=== PATIENT | female | born 1935 | race Caucasian/White ===

== ENCOUNTER 2019-02-20 18:27 | Observation (INO) | payer MEDICARE ==
[~2019-02-20] VITALS: Ht 157.5 cm; Wt 63.5 kg
[~2019-02-20 18:27] MED LIST: ASPIR 8181 MG PO; CLONIDINE HCL0.1 MG PO; FUROSEMIDE20 MG PO; LOSARTAN-HCTZ1 EAC1 PO; METOPROLOL TART50 MG PO; MILK OF MA2400 MG/10 PO; NISOLDIPINE34 MG PO; ROSUVASTATIN PO; SULAR34 MG PO
--- OUTSIDE RECORDS SUMMARY | 2019-02-20 18:31 | XMS REPORT ---
Author Author [facility] Address Unknown Phone Unavailable Care Team Providers Care Montessori Paraprofessional Name Role Phone SIMEON BLACKMON Unavailable Unavailable Payers Payer Name Policy Type Policy Number Effective Date Expiration Date Problems This patient has no known problems. Allergies, Adverse Reactions, Alerts Allergy Name Allergy Type Status Severity Reaction(s) Onset Date Inactive Date Treating Clinician Comments hydralazine DA Active U 2015-12-07 00:00:00 tramadol DA Active [place] 2015-02-25 00:00:00 meperidine DA Active [place] 2015-02-25 00:00:00 morphine DA Active SV 2013-11-15 00:00:00 Medications This patient has no known medications. Results Test Description Test Time Test Comments Text Results Atomic Results Result Comments - XR CHEST 2 V 2019-02-07 13:10:00 FAX: Maribell Barron MD [phone] [place]: B St: [facility] FAX: Arvin Davalos MD [phone] Name: NYLA ORTEGA [facility] : 1935 Age/S: 83/F [address] [address] [facility]: [id number] Loc: [place] [address] Phys: Maribell Koch MD Acct: [id number] Dis Date: Status: REG CLI PHONE #: [phone] Exam Date: 02/07/2019 1238 FAX #: [phone] Reason: [facility] EXAMS: CPT CODE: [id number] XR CHEST 2 V 97432 HISTORY: Cough. COMPARISON: December 07, 2015. AP and lateral view of the chest: No acute infiltrates, effusion or congestion. Apical pleural thickening. Cardiomegaly. IMPRESSION: No acute infiltrates, effusion or congestion. at 1310 Reported and signed by: Shon Jaimes M.D. CC: Maribell Koch MD; Arvin Donaldson Technologist: FRANCISCO J Grimes) Trnscrd Date/Time/By: 02/07/2019 (3360) : By: [email or web address] Orig Print D/T: S: 02/07/2019 (0171) PAGE [address] CHEST WO [place] [address] Patient Name: NYLA ORTEGA MR #: [id number] : 1935 Age/Sex: 81/F Req #: [id number] Adm Physician: Ordered by: SIMEON BLACKMON MD Report #: [id number] Location: CT Room/Bed: Procedure: [id number] CT/CT CHEST WO Exam Date: 05/13/17 Exam Time: 1105 REPORT STATUS: Signed PROCEDURE: CT CHEST WITHOUT CONTRAST CT scan of the chest WITHOUT intravenous contrast, using standard protocol. TECHNIQUE: The chest was scanned utilizing a multidetector helical scanner from the apex to the level of the adrenal glands. No IV contrast was administered per physician's request. Coronal and sagittal multiplanar reformations were obtained. COMPARISON: None. INDICATIONS: COUGH SINCE JUNE, left pleural basilar infiltrate FINDINGS: Lines/tubes: None. Lungs and Airways: Mild biapical pleuroparenchymal scarring. Linear opacities in the medial and posteromedial left lower lobe (series 3, image 76) with associated mild bronchiolectasis, and lateral lingula (series 3, image 73 and sagittal image 92), likely represent scarring. No pulmonary nodules, masses, or conso lidation. Airways are clear, without endobronchial lesions. Small fat- containing right posterior diaphragmatic hernia (sagittal image 47). Pleura: No effusion, or pneumothorax. Heart and mediastinum: Thyroid is unremarkable. Mild cardiomegaly. No pericardial effusion. Atherosclerotic calcification of the coronary arteries and thoracic aorta. The aorta is non- aneurysmal. Main pulmonary artery is in the upper limit of normal, measuring 2.9 cm. Lymph nodes: No mediastinal, hilar, or axillary adenopathy. Abdomen: Limited views of the upper abdomen show no abnormality within the visualized liver, spleen. The adrenal glands are unremarkable. Bones: No acute bony abnormalities. Generalized osteopenia. No lytic lesions. Soft tissues are grossly unremarkable. IMPRESSION: 1. left lower lobe scarring with associated mild bronchiolectasis. Lingular scarring. No consolidation, effusion, masses or nodules. 2. Mild cardiomegaly. Antonina Nunez M.D. Dictated by: Antonina Nunez M.D. on 05/13/2017 at 17:59 Electronically approved by: Antonina Nunez M.D. on 05/13/2017 at 17:59 Dictated By: ANTONINA NUNEZ MD 58 Transcribed By: MATIAS on 05/13/171758 COPY TO: SIMEON BLACKMON MD
[2019-02-20] MEDS ORDERED: ONDANSETRON HCL INJ 2MG/ML 2ML 2 MG/ML VIAL IV NR (19:18)
[2019-02-20] MEDS ORDERED: SODIUM CHLORIDE 0.9% 1000ML 1,000 ML IV STA (19:18)
[2019-02-20 20:45] LABS: BASOPHILS % 0.4 % (0.0-1.0); EOSINOPHILS % 0.1 % (0.0-6.0); HEMATOCRIT 34.3 % (34.2-44.1); HEMOGLOBIN 11.7 g/dL (12.0-16.0); LYMPHOCYTES # (AUTO) 0.4 (1.0-3.2); LYMPHOCYTES % 4.1 % (18.0-39.1); MEAN CORPUSCULAR HEMOGLOBIN 29.9 pg (28-32); MEAN CORPUSCULAR HGB CONC 34.1 g/dL (31-35); MEAN CORPUSCULAR VOLUME 87.7 fL (81-99); MONOCYTES # (AUTO) 0.4 (0.2-0.8); MONOCYTES % 4.1 % (4.4-11.3); NEUTROPHILS # (AUTO) 9.6 (2.1-6.9); NEUTROPHILS % 90.7 % (38.7-80.0); PLATELET COUNT 292 x10e3/uL (140-360); RED BLOOD COUNT 3.91 x10e6/uL (3.6-5.1); RED CELL DISTRIBUTION WIDTH 13.3 % (11.7-14.4)
--- NOTE | 2019-02-20 20:45 | NUR ---
pt states she is having chest heaviness after zofran and franchesca, and night custodian notified, 12 lead ekg done, desk monitor, nibp, spo2. lab notified of cardiac markers
[2019-02-20 20:58] LABS: ALBUMIN 3.4 g/dL (3.5-5.0); ALBUMIN/GLOBULIN RATIO 0.8 (0.8-2.0); ANION GAP 19.1 mmol/L (8-16); CALCIUM 10.2 mg/dL (8.4-10.2); CREATININE, SERUM 0.9 mg/dL (0.57-1.11); POTASSIUM 3.1 mmol/L (3.5-5.1)
[2019-02-20 21:12] LABS: COLOR,URINE YELLOW (YELLOW)
[2019-02-20 21:13] LABS: CLARITY,URINE CLEAR (CLEAR); LEUKOCYTE ESTERASE ,URINE NEGATIVE (NEGATIVE)
[2019-02-20 21:14] LABS: NITRITE,URINE POSITIVE (NEGATIVE)
[2019-02-20 21:15] LABS: KETONES,URINE NEGATIVE (NEGATIVE); PROTEIN,URINE DIPSTICK 1+ (NEGATIVE)
[2019-02-20 21:16] LABS: BACTERIA,URINE FEW /HPF; BILIRUBIN,URINE 1+ (NEGATIVE); EPITHELIAL CELLS,URINE FEW /LPF; RBC,URINE 0-5 /HPF (0-5); URINE UROBILINOGEN 0.2 mg/dL (0.2 - 1); WBC,URINE (MAN) 0-5 /HPF (0-5)
[2019-02-20 21:25] LABS: INR 1.01; PROTHROMBIN TIME 13.8 seconds (11.9-14.5)
[2019-02-20 21:26] LABS: PARTIAL THROMBOPLASTIN TIME 26.2 seconds (23.8-35.5)
[2019-02-20] MEDS ORDERED: PROMETHAZINE HCL (IM) 25 MG/ML VIAL IM ONE (21:30)
--- NOTE | 2019-02-20 21:55 | NUR ---
PT CONT TO COMPLAIN OF VOMITING AND CHEST HEAVINESS, LOWER BACK PAIN. ERP AWARE, MEDICATED WITH PHENERGAN PER ORDERS
--- NOTE | 2019-02-20 22:00 | NUR ---
Note wilder in ED - 02/20/19 at 2314 by ALANA PT CONT TO COMPLAIN OF VOMITING AND CHEST HEAVINESS, LOWER BACK PAIN. ERP AWARE, NO NEW ORDERS
--- NOTE | 2019-02-20 22:03 | Diagnostic Imaging Report ---
Examination: Single AP view of the chest. COMPARISON: None. INDICATION: Chest pressure, history of asthma IMPRESSION: 1. Lines and Tubes: None 2. Lungs are well-inflated. Mild left basilar atelectatic changes. No consolidation or effusion 3. Cardiomediastinal silhouette is normal. Mild central pulmonary venous congestion and perihilar prominent interstitial markings, which may reflect mild interstitial edema. 4. No acute bony abnormalities. Signed by: Dr. Олег Nunez M.D. on 02/20/2019 10:00 PM
[2019-02-20 22:26] LABS: AMYLASE 111 U/L (25-125); LIPASE 50 U/L (8-78)
[2019-02-20 22:33] LABS: CREATINE KINASE MB 0.9 ng/mL (0-5.0)
[2019-02-20] MEDS ORDERED: IOPAMIDOL 370 MG/ML 200 ML INFUS..BTL INJ ONE (22:47)
[2019-02-20] MEDS ORDERED: SODIUM CHLORIDE 0.9% 50ML 50 ML ONE (22:47)
--- NOTE | 2019-02-20 23:10 | NUR ---
PT CONT TO COMPLAIN OF VOMITING/RETCHING, CHEST PAIN, BACK PAIN. DR MERA AWARE, NO NEW ORDERS, AWAITING CT RESULTS
--- NOTE | 2019-02-20 23:38 | Diagnostic Imaging Report ---
EXAMINATION: CT of the abdomen and pelvis with contrast. TECHNIQUE: Spiral CT images of the abdomen and pelvis were performed from the lung bases to the lesser trochanters after the intravenous administration of 100 cc of Isovue 370 and the oral administration of water. Coronal and sagittal reformatted images were obtained. COMPARISON: None. CLINICAL HISTORY:Lower abdominal and back pain, vomiting for one day DISCUSSION: ABDOMEN/PELVIS: LOWER THORAX:Linear opacities in bilateral lower lobes, left greater than right, likely representing subsegmental atelectasis or scarring. Mild bilateral dependent atelectasis. HEPATOBILIARY: No focal hepatic lesions. No intra or extrahepatic biliary ductal dilation. GALLBLADDER: No radio-opaque stones or sludge. No wall thickening. SPLEEN: No splenomegaly. PANCREAS: No focal masses or ductal dilatation. ADRENALS: No adrenal nodules. KIDNEYS/URETERS: No hydronephrosis, stones, or solid mass lesions. PELVIC ORGANS/BLADDER: Bladder is unremarkable. Uterus is not visualized. No adnexal masses. PERITONEUM/RETROPERITONEUM: No free air or fluid. LYMPH NODES: No intra-abdominal, retroperitoneal, pelvic or inguinal lymphadenopathy. VESSELS: The celiac trunk,superior and inferior mesenteric and bilateral renal arteries are patent The portal, superior mesenteric and splenic veins are patent. Atherosclerotic calcification of the abdominal aorta. GI TRACT: No bowel dilation or evidence of obstruction. No pericolonic inflammatory changes. Appendix is identified and normal in caliber . Small hiatal hernia. Descending and sigmoid colon diverticulosis, without diverticulitis. BONES AND SOFT TISSUE: No aggressive lytic lesion. Degenerative disc changes, worse at L4-L5. Generalized osteopenia. Postsurgical/degenerative changes of the right hip, with heterotopic ossification. There is posterior displacement of the proximal right femur in relation to the acetabulum. Small fat-containing umbilical hernia. IMPRESSION: 1. No acute abdominopelvic abnormalities. No bowel dilation or evidence of obstruction. 2. Subsegmental atelectasis versus scarring in bilateral lower lobes. Signed by: Dr. Олег Nunez M.D. on 02/20/2019 11:35 PM
[2019-02-20] MEDS ORDERED: SIMVASTATIN40 MG PO (23:57)
[2019-02-20] MEDS ORDERED: PANTOPRAZOLE SO40 MG PO (23:57)
[2019-02-20] MEDS ORDERED: ARNUITY INH (23:57)
[2019-02-20] MEDS ORDERED: SUCRALFATE1 GM PO (23:57)
[2019-02-21] VITALS (9 sets, daily range): BP systolic 145–172; BP diastolic 63–94
[2019-02-21] MEDS ORDERED: ASPIRIN 81 MG CHEW TAB PO ONE (00:15)
[2019-02-21] MEDS ORDERED: KCL 20MEQ/.9 SOD CHL 1,000 ML IV ONE (00:15)
[2019-02-21] MEDS ORDERED: FAMOTIDINE 20 MG/2 ML VIAL IV SCH (00:15)
[2019-02-21] MEDS ORDERED: PROMETHAZINE HCL (IM) 25 MG/ML VIAL IV PRN (00:15)
[2019-02-21] MEDS: CEFTRIAXONE SOD 1 GM/NS 50 ML 50 ML IV SCH (00:39)
[2019-02-21] MEDS: HYDROMORPHONE 1MG/1ML INJ IV PRN ×2 (00:39→14:40)
--- NOTE | 2019-02-21 01:15 | NUR ---
pt states he has no pain and no nausea after dilaudid. awake alert skin w/d resp nonlab, nad noted.
[2019-02-21 07:53] LABS: ANION GAP 11.9 mmol/L (8-16); BLOOD UREA NITROGEN 26 mg/dL (7-26); BUN/CREATININE RATIO 34 (6-25); CALCIUM 9.2 mg/dL (8.4-10.2); CARBON DIOXIDE 27 mmol/L (22-29); CHLORIDE 104 mmol/L (98-107); CREATININE, SERUM 0.77 mg/dL (0.57-1.11); EST GLOMERULAR FILTRATION RATE > 60 ML/MIN (60-); GLUCOSE 103 mg/dL (74-118); SODIUM 140 mmol/L (136-145)
[2019-02-21 08:15] LABS: POTASSIUM 2.9 mmol/L (3.5-5.1)
[2019-02-21 08:17] LABS: CREATINE KINASE MB 1.2 ng/mL (0-5.0)
[2019-02-21] MEDS: FAMOTIDINE 20 MG/2 ML VIAL IV SCH ×2 (09:28→21:45)
[2019-02-21] MEDS ORDERED: POTASSIUM CHLORIDE 20MEQ/100ML 200 ML IV ONE (09:45)
[2019-02-21] MEDS ORDERED: SODIUM CHLORIDE 0.9% 500ML 500 ML ONE (13:21)
--- NOTE | 2019-02-21 14:38 | History and Physical ---
CHIEF COMPLAINT: An 83-year-old female comes in with intractable nausea and vomiting. HISTORY OF PRESENT ILLNESS: Ms. Carley Dai, who has a history of chronic hip and knee osteoarthritis on a wheelchair was in usual state of health until the patient started to have back pain, who called the answering service, the patient was started on ciprofloxacin and after this, the patient started to have intractable nausea and vomiting. The patient came to the emergency room, was found to have hypokalemia, dehydration and intractable nausea and vomiting, admitted for the same. PAST MEDICAL HISTORY: History of coronary artery disease, history of hypertension, history of hyperlipidemia, history of reflux esophagitis, and history of chronic asthma. MEDICATIONS: Medicines she takes at home are clonidine 0.1 mg b.i.d., losartan hydrochlorothiazide 100/12.5, metoprolol 50 mg twice a day, 35 mg daily, pantoprazole 40 mg daily, simvastatin 40 mg daily, and Carafate 1 g daily. The patient also takes COPD/asthma, one dose inhalation daily. PAST SURGICAL HISTORY: History of cardiac stent placement, right hip replacement and partial hysterectomy. FAMILY HISTORY: Noncontributory. REVIEW OF SYSTEMS: Negative for chest pain. No shortness of breath. Positive for nausea and vomiting. No diarrhea. No constipation. No rectal bleeding. No hematochezia. No hematemesis. Positive for headache. No diplopia. No blurry vision. ALLERGIES: THE PATIENT IS ALLERGIC TO HYDRALAZINE, DEMEROL, MORPHINE, AND TRAMADOL. PHYSICAL EXAMINATION: VITAL SIGNS: Temperature is 97.7, pulse of 64, blood pressure is 145/70, pulse oximetry of 93%. HEENT: Normocephalic, atraumatic. Sunken eye. Mucosa is dry. CVS: S1, S2 normal. Regular rate and rhythm. ABDOMEN: Tender in the epigastrium. EXTREMITIES: No clubbing. No cyanosis. No edema. LUNGS: Clear to auscultation bilaterally. LABORATORY VALUES: Initial white count is 10.61, hemoglobin of 11.7, neutrophil count 19.7. Chemistry; sodium of 138, potassium of 3.1, BUN of 41, creatinine of 0.90, glucose is 147. Coags were normal. ASSESSMENT: An 83-year-old female with: 1. Dehydration. 2. Urinary tract infection. 3. History of coronary artery disease. 4. History of hypertension. 5. History of hyperlipidemia. PLAN: Continue on IV hydration. The patient has been started on Rocephin 1 g for urinary tract infection. The patient has been given 0.5 mg of hydromorphone as needed for pain control. Nausea medication is instituted and potassium chloride has been infused at this point of time IV for hypokalemia. Further recommendation per clinical course. We will continue to monitor the patient. Labs will be done in the morning and the patient can be discharged in 1 to 2 days depending on clinical progress. MD CORIE Sheriff/RACHEAL /[id number]
--- NOTE | 2019-02-21 19:00 | NUR ---
Bedside report completed with morning nurse. Pt alert and orient to name. Lying in bed HOB 60 degrees. Denies pain at this time. Denies nausea at this time. x1 vomit previous shift. Call sánchez within reach. Will continue to monitor.
--- NOTE | 2019-02-21 19:46 | NUR ---
Spoke with Dr. Donaldson at this time. Orders received to continue home medications.
[2019-02-21] MEDS: LOSARTAN POTASSIUM 100 MG TAB PO SCH (20:12)
[2019-02-21] MEDS: HYDROCHLOROTHIAZIDE 25 MG TAB PO SCH (20:13)
[2019-02-21] MEDS ORDERED: PROMETHAZINE 12.5MG/ NACL 0.9% 50 ML IV PRN (20:15)
[2019-02-21] MEDS ORDERED: SIMVASTATIN 40 MG TAB PO SCH (21:00)
[2019-02-21] MEDS ORDERED: NISOLDIPINE 34 MG PO SCH (21:00)
[2019-02-21] MEDS: METOPROLOL TARTRATE 50 MG TAB PO SCH (21:45)
[2019-02-21] MEDS: CLONIDINE HCL 0.1 MG TAB PO SCH (21:45)
[2019-02-22 00:09] VITALS: BP 112/52
[2019-02-22] MEDS: CEFTRIAXONE SOD 1 GM/NS 50 ML 50 ML IV SCH (00:15)
[2019-02-22 04:00] VITALS: BP 147/81
[2019-02-22 05:00] LABS: BASOPHILS % 0.6 % (0.0-1.0); EOSINOPHILS # (AUTO) 0.2 (0.0-0.4); EOSINOPHILS % 3.2 % (0.0-6.0); HEMATOCRIT 30.4 % (34.2-44.1); HEMOGLOBIN 9.8 g/dL (12.0-16.0); LYMPHOCYTES # (AUTO) 0.9 (1.0-3.2); MEAN CORPUSCULAR HEMOGLOBIN 29.4 pg (28-32); MEAN CORPUSCULAR HGB CONC 32.2 g/dL (31-35); MEAN CORPUSCULAR VOLUME 91.3 fL (81-99); MONOCYTES # (AUTO) 0.7 (0.2-0.8); NEUTROPHILS # (AUTO) 4.7 (2.1-6.9); NEUTROPHILS % 71.7 % (38.7-80.0); PLATELET COUNT 241 x10e3/uL (140-360); RED BLOOD COUNT 3.33 x10e6/uL (3.6-5.1); RED CELL DISTRIBUTION WIDTH 13.7 % (11.7-14.4)
[2019-02-22 05:21] LABS: ALANINE AMINOTRANSFERASE 10 IU/L (0-55); ALBUMIN 2.6 g/dL (3.5-5.0); ALBUMIN/GLOBULIN RATIO 0.7 (0.8-2.0); ALKALINE PHOSPHATASE 53 IU/L (40-150); ANION GAP 10.3 mmol/L (8-16); BLOOD UREA NITROGEN 20 mg/dL (7-26); BUN/CREATININE RATIO 24 (6-25); CALCIUM 8.9 mg/dL (8.4-10.2); CARBON DIOXIDE 28 mmol/L (22-29); CHLORIDE 104 mmol/L (98-107); CHOL/HDL RATIO 2.8 (3.0-3.6); CHOLESTEROL 151 MD/DL (0-199); CREATININE, SERUM 0.82 mg/dL (0.57-1.11); EST GLOMERULAR FILTRATION RATE > 60 ML/MIN (60-); GLUCOSE 89 mg/dL (74-118); HDL CHOLESTEROL 53 MG/DL (40-60); LDL CHOLESTEROL 84 MG/DL (60-130); POTASSIUM 3.3 mmol/L (3.5-5.1); SODIUM 139 mmol/L (136-145); TRIGLYCERIDES 68 MG/DL (0-149)
--- NOTE | 2019-02-22 06:55 | NUR ---
Report given to morning nurse. Pt lying in bed. No acute distress noted.
[2019-02-22 07:16] VITALS: BP 145/68
--- NOTE | 2019-02-22 07:38 | Progress Note ---
DATE: SUBJECTIVE: The patient is an 83-year-old female, who comes in with intractable nausea, vomiting. The patient had one episode of emesis yesterday, but feeling much better today. No chest pain, no shortness of breath, and feeling much better. No CVA tenderness and/or pain and/or back pain. OBJECTIVE: VITAL SIGNS: Temperature is 98.1, pulse of 70, blood pressure is 147/81, respirations of 18, pulse oximetry of 95%. HEENT: Normocephalic, atraumatic. Pupils are reactive to light and accommodation. CVS: S1 and S2 normal. Regular rate and rhythm. Ejection systolic murmur present. ABDOMEN: Nontender, nondistended. EXTREMITIES: Hip with tenderness, and the patient is wheelchair dependent status post hip surgery. LABORATORY VALUES: Today's hemoglobin is 9.8, hematocrit 30.4, no left shift present. Chemistries, sodium of 139, potassium 3.3. BUN of 20, creatinine 0.82. LDL is 84. Coags are normal. MICROBIOLOGY: Urine culture preliminary shows no growth. ASSESSMENT: 1. An 83-year-old female with a history of urinary tract infection, currently on antibiotic. The patient is on Rocephin. We will switch her to Keflex on discharge. 2. Dehydration, resolved. 3. Coronary artery disease with hypertension and hyperlipidemia. Continue on CV medication. We will replace potassium and discharge the patient today to be seen by me in about a week's time. Further recommendation as an outpatient. We will follow the patient along with labs. MD CORIE Sheriff/SIXTOL /[id number]
[2019-02-22 07:56] VITALS: BP 145/68
[2019-02-22] MEDS: FAMOTIDINE 20 MG/2 ML VIAL IV SCH (08:56)
[2019-02-22] MEDS: HYDROCHLOROTHIAZIDE 25 MG TAB PO SCH (08:57)
[2019-02-22] MEDS: CLONIDINE HCL 0.1 MG TAB PO SCH (08:57)
[2019-02-22] MEDS: LOSARTAN POTASSIUM 100 MG TAB PO SCH (08:57)
[2019-02-22] MEDS: METOPROLOL TARTRATE 50 MG TAB PO SCH (08:58)
[2019-02-22] MEDS ORDERED: ARNUITY INH SCH (09:00)
[2019-02-22] MEDS ORDERED: NON-FORMULARY MEDICATION (Losartan/Hydrochlorothiazide (Losartan-Hctz 100-25 Mg Tab) 1 TAB PO SCH (09:00)
[2019-02-22] MEDS ORDERED: METOPROLOL TARTRATE 50 MG TAB PO SCH (09:00)
[2019-02-22] MEDS ORDERED: PANTOPRAZOLE SOD 40 MG TABEC PO SCH (09:00)
[2019-02-22] MEDS ORDERED: CLONIDINE HCL 0.1 MG TAB PO SCH (09:00)
[2019-02-22] MEDS ORDERED: CEPHALEXIN500 MG PO (10:25)
[2019-02-22] MEDS ORDERED: ZOFRAN4 MG PO (10:25)
[2019-02-22 11:07] VITALS: BP 135/64
== END 2019-02-22 10:58 | disposition home or self-care (01) ==
LOC: ER 18:36 → ERHOLD 02-21 00:17 → MED/SURG2 02-21 01:14
PROVIDERS: ADMIT Family Medicine; ATTEND Family Medicine
DX: N30.00 Acute cystitis without hematuria (principal); E86.0 Dehydration; I25.10 Atherosclerotic heart disease of native coronary artery without angina pectoris; E78.5 Hyperlipidemia, unspecified; E87.6 Hypokalemia; R07.9 Chest pain, unspecified; R11.2 Nausea with vomiting, unspecified; I10 Essential (primary) hypertension; J45.909 Unspecified asthma, uncomplicated; Z88.5 Allergy status to narcotic agent; Z88.8 Allergy status to other drugs, medicaments and biological substances; Z83.3 Family history of diabetes mellitus; Z82.49 Family history of ischemic heart disease and other diseases of the circulatory system; Z96.641 Presence of right artificial hip joint; Z95.5 Presence of coronary angioplasty implant and graft
CPT/HCPCS: 36415 ×3; 71045; 74177; 80048; 80053 ×2; 80061; 81001; 82150; 82550 ×2; 82553 ×2; 83690; 84484 ×2; 85025 ×2; 85610; 85730; 87086; 93005; 96374; 97161; 97530; 99284; G0378 ×2; J0696 ×2; J1170; J2405; J2550; J3480; J7030; J7040; Q9967; S0164

== ENCOUNTER 2019-02-27 05:03 | Inpatient (IN) | payer MEDICARE ==
[~2019-02-27] VITALS: Ht 157.5 cm; Wt 54.9 kg
[~2019-02-27 05:03] MED LIST changes: +ARNUITY INH; +CEPHALEXIN500 MG PO; +PANTOPRAZOLE SO40 MG PO; +SIMVASTATIN40 MG PO; +SUCRALFATE1 GM PO; +ZOFRAN4 MG PO
[2019-02-27 05:55] LABS: BASOPHILS % 0.4 % (0.0-1.0); EOSINOPHILS # (AUTO) 0.2 (0.0-0.4); EOSINOPHILS % 3.7 % (0.0-6.0); HEMATOCRIT 31.4 % (34.2-44.1); HEMOGLOBIN 10.7 g/dL (12.0-16.0); LYMPHOCYTES # (AUTO) 0.8 (1.0-3.2); LYMPHOCYTES % 13.3 % (18.0-39.1); MEAN CORPUSCULAR HEMOGLOBIN 30.2 pg (28-32); MEAN CORPUSCULAR HGB CONC 34.1 g/dL (31-35); MEAN CORPUSCULAR VOLUME 88.7 fL (81-99); MONOCYTES # (AUTO) 0.7 (0.2-0.8); NEUTROPHILS % 69.9 % (38.7-80.0); PLATELET COUNT 288 x10e3/uL (140-360); RED BLOOD COUNT 3.54 x10e6/uL (3.6-5.1)
[2019-02-27 06:13] LABS: ALANINE AMINOTRANSFERASE 23 IU/L (0-55); ALBUMIN 2.9 g/dL (3.5-5.0); ALBUMIN/GLOBULIN RATIO 0.7 (0.8-2.0); ALKALINE PHOSPHATASE 69 IU/L (40-150); BLOOD UREA NITROGEN 27 mg/dL (7-26); BUN/CREATININE RATIO 41 (6-25); CALCIUM 9.9 mg/dL (8.4-10.2); CARBON DIOXIDE 23 mmol/L (22-29); CHLORIDE 106 mmol/L (98-107); CREATININE, SERUM 0.66 mg/dL (0.57-1.11); EST GLOMERULAR FILTRATION RATE > 60 ML/MIN (60-); GLUCOSE 97 mg/dL (74-118); SODIUM 140 mmol/L (136-145)
[2019-02-27] MEDS ORDERED: ONDANSETRON HCL INJ 2MG/ML 2ML 2 MG/ML VIAL IV STA (06:34)
[2019-02-27] MEDS ORDERED: MORPHINE SULFATE INJ 4 MG/ML INJ 1ML IV STA (06:34)
[2019-02-27] MEDS ORDERED: POTASSIUM CHLORIDE 20 MEQ TAB CR PO STA (06:39)
[2019-02-27 06:47] LABS: BILIRUBIN,URINE NEGATIVE (NEGATIVE); CLARITY,URINE SL CLOUDY (CLEAR); COLOR,URINE YELLOW (YELLOW); KETONES,URINE NEGATIVE (NEGATIVE); LEUKOCYTE ESTERASE ,URINE NEGATIVE (NEGATIVE); NITRITE,URINE NEGATIVE (NEGATIVE); PROTEIN,URINE DIPSTICK 2+ (NEGATIVE); URINE UROBILINOGEN 0.2 mg/dL (0.2 - 1)
[2019-02-27 06:52] LABS: BACTERIA,URINE FEW /HPF; EPITHELIAL CELLS,URINE FEW /LPF; RBC,URINE 0-5 /HPF (0-5); WBC,URINE (MAN) 0-5 /HPF (0-5)
[2019-02-27] MEDS ORDERED: FENTANYL CITRATE/PF 100MCG/2 ML INJ IV ONE (07:15)
[2019-02-27] MEDS ORDERED: POTASSIUM CHLORIDE 20MEQ/15ML UDC ONE (07:41)
--- NOTE | 2019-02-27 07:51 | Diagnostic Imaging Report ---
EXAMINATION: CT of the lumbar spine without contrast. HISTORY: Low back pain for the last week, abdominal pain, UTI. COMPARISON: Abdomen CT 02/20/2019 TECHNIQUE: Multidetector helical axial images were obtained without contrast from L1 to S1. The images were reconstructed using bone and soft tissue algorithms and were viewed in axial, sagittal, and coronal planes. Dose modulation, iterative reconstruction, and/or weight based adjustment of the mA/kV was utilized to reduce the radiation dose to as low as reasonably achievable. FINDINGS: Please note, the patient has transitional vertebral anatomy. Nerve roots as numbered in this report may not correspond to standard dermatomal patterns. For the purposes of the current examination and based on the last rib-bearing vertebra and body appear to be sacralized, with alimentary L5-S1 disc. Alignment: Straightening of the lumbar lordosis which may be related to muscle spasm or positional. Subtle left-sided curvature. Vertebral bodies: -Diffuse osteopenia. -An acute osteoporotic compression fracture of the L1 vertebral body with decreased vertebral body height by approximately 50%, with depression of the superior endplate and minimal, approximately 2 mm posterior retropulsion of the superior endplate, nausea. Significant canal stenoses. -Unchanged mild chronic osteoporotic compression fracture of the L2 vertebral body with depression of the inferior endplate and decreased vertebral body height by approximately 20%, no posterior retropulsion and no canal stenosis. -Nonspecific well-circumscribed lesion with sclerotic ring in the left sacrum, unchanged. Also unchanged nonspecific nonaggressive appearing sclerotic trabecula in the partially visualized right iliac bone, which may be related to osteoporosis. Paraspinal muscles: Moderate atrophy of the right greater than left psoas muscles and posterior paraspinal muscles in the lumbosacral region. Intervertebral disks: L1-L2: Minimal symmetric disc bulge and facet arthrosis without stenosis. L2-L3: The crit despite, mild symmetric disc bulge and facet arthrosis. No significant stenoses. L3-L4: Decreased disc height, vacuum phenomena, subchondral endplate scleroses and mild facet processes. Minimal bilateral foraminal narrowing. L4-L5: Mild symmetric disc bulge and bilateral facet arthrosis. Minimal left foraminal narrowing. L5-S1: Rudimentary disc, no stenoses. IMPRESSION: 1. Moderate acute osteoporotic compression fracture of the L1 vertebral body, new since abdomen CT of 02/20/2019. Minimal associated posterior retropulsion without canal stenosis. No thecal sac/cauda equina compression. 2. Unchanged mild chronic compression fracture of the L2 vertebral body compared to CT of 02/20/2019. 3. Mild chronic degenerative changes with minimal foraminal narrowing at L3-L4 and L4-L5 as detailed above. Findings were discussed with the ER physician taking care of the patient Dr. Guillory on 02/27/2019 at 7:43 AM. Signed by: Dr. Gale Alvarez M.D. on 02/27/2019 7:48 AM
--- NOTE | 2019-02-27 07:55 | Diagnostic Imaging Report ---
EXAM: CT of the abdomen and pelvis WITHOUT contrast HISTORY: Abdominal pain, back pain, UTI COMPARISON: CT of the abdomen and pelvis February 20, 2019. TECHNIQUE: The abdomen and pelvis were scanned utilizing a multidetector helical scanner. Coronal and sagittal reformats are available. PROTOCOL: Renal colic IV CONTRAST: None, which limits sensitivity and specificity of evaluation of the soft tissues and vascular structures. ORAL CONTRAST: None, which limits sensitivity and specificity of evaluation of the bowel. RADIATION DOSE: Total DLP: 333.53 mGy*cm Estimated effective dose: (DLP x 0.015 x size factor) Dose modulation, iterative reconstruction, and/or weight based adjustment of the mA/kV was utilized to reduce the radiation dose to as low as reasonably achievable. COMPLICATIONS: None FINDINGS: LOWER THORAX: Slightly increased mild left basilar atelectasis. Small hiatal hernia. HEPATOBILIARY: No mass. No biliary dilation. No calcified gallstone. SPLEEN: No splenomegaly. PANCREAS: No focal masses or ductal dilatation. ADRENALS: No adrenal nodule. KIDNEYS/URETERS: No hydronephrosis, stones, or solid mass lesion identified. PELVIC ORGANS/BLADDER: The visualized pelvic organs appear unremarkable. PERITONEUM / RETROPERITONEUM: No free air or fluid. GI TRACT: On limited evaluation of the gastrointestinal tract, no dilation or wall thickening identified. The appendix appears normal. Colonic diverticulosis. Moderate colonic fecal burden. LYMPH NODES: No pathologically enlarged lymph nodes. VESSELS: Scattered atherosclerotic vascular calcifications, including the coronary arteries. BONES and JOINTS: Diffusely decreased mineralization of the osseous structures limits bone detail. Stable chronic postsurgical changes and heterotopic ossification about the right hip, status post resection of the proximal femur. Slightly decreased superior and lateral displacement of the residual proximal femur. Stable healed fracture deformity of the parasymphyseal region of the left pubic bone and left inferior pubic ramus. Interval anterior wedge compression deformity of L2. SOFT TISSUES: Stable small fat-containing umbilical hernia. Diffuse muscle atrophy. IMPRESSION: 1. Diffuse osseous demineralization with interval anterior wedge compression fracture deformity of L2, please refer to CT of the lumbar spine from the same date for further details. 2. Otherwise, no significant interval change. Signed by: Dr. Sharif Srivastava D.O., M.M.M. on 02/27/2019 7:52 AM
--- NOTE | 2019-02-27 07:55 | NUR ---
BEDSIDE REPORT WITH RUSS Springer
--- NOTE | 2019-02-27 08:46 | NUR ---
PATIENTS HELPING WITH BREAKFAST
--- NOTE | 2019-02-27 12:09 | NUR ---
PATIENT PLACED ON WAFFLE, SHEETS AND DIAPER CHANGED. PATIENT CLEANED LUNCH AT BEDSIDE. PATIENTS ASSISTING HER TO EAT
[2019-02-27] MEDS: HYDROMORPHONE 1MG/1ML INJ IV PRN ×3 (13:19→21:27)
[2019-02-27] MEDS: ONDANSETRON HCL INJ 2MG/ML 2ML 2 MG/ML VIAL IV PRN ×3 (13:19→21:27)
--- NOTE | 2019-02-27 14:09 | NUR ---
Patient arrived to the floor via stretcher from the ER. she is awake alert and oriented x3. She is not in any distress. Patient says she has been non-ambulatory for 3 years due to a fall from a right hip fracture that was not able to be repaired. She lives at home with his who is her caregiver. Patient was turned and repositioned, cleaned, and educated on how to use the call light. She verbalized understanding. bed alarm on, call light in reach
--- NOTE | 2019-02-27 15:10 | NUR ---
Visit made by the Spiritual Care Department Pastoral Visitor, Kevin Xie. PV provided pastoral presence, prayer, communion, hospitality, and supportive listening. Pastoral Visitor informed pt/family of the scope of [employer] and availability. MATIAS CASTILLO Basket Bottom Machine Operator Spiritual Care Department O: [phone] Pager: [phone] ([phone] number calling from)
[2019-02-27] MEDS ORDERED: PROMETHAZINE 12.5MG/ NACL 0.9% 12.5 MG/50 ML BAG IV STA (17:13)
[2019-02-27 17:28] VITALS: BP 135/60
--- NOTE | 2019-02-27 19:11 | NUR ---
WALKING ROUNDS PERFORMED, RECEIVED PT LAYING SEMI FOWLERS IN BED, AAOX3, RR EVEN AND NON-LABORED, ON ROOM AIR. NO S/SX OF DISTRESS NOTED. LEFT PT LAYING SEMI FOWLERS IN BED, BED IN LOW LOCKED POSITION, SIDE RAILS UPX2, CALL LIGHT AND PHONE WITHIN REACH.
[2019-02-27 20:11] VITALS: BP 149/71
--- NOTE | 2019-02-27 20:30 | NUR ---
ALTERNATING PRESSURE PUMP APPLIED TO MATTRESS FOR PRESSURE ULCER PREVENTION BY PCT. PT REFUSING Q2 TURNS, STATES "MY HIP HURTS TOO MUCH WHEN YOU TURN ME, YOU CAN TURN ME WHEN I NEED TO BE CHANGED AND I WILL TELL YOU WHEN I NEED TO BE CHANGED." REINFORCED TO PATIENT PRESSURE ULCER PREVENTION AND PAIN MANAGEMENT PT STILL REFUSING Q2 TURNS.
[2019-02-27 21:27] VITALS: BP 149/71
[2019-02-28] VITALS (8 sets, daily range): BP systolic 119–169; BP diastolic 56–77
[2019-02-28] MEDS: ONDANSETRON HCL INJ 2MG/ML 2ML 2 MG/ML VIAL IV PRN ×3 (04:34→21:07)
[2019-02-28] MEDS: HYDROMORPHONE 1MG/1ML INJ IV PRN ×3 (04:34→21:11)
[2019-02-28 05:55] LABS: BASOPHILS % 0.4 % (0.0-1.0); EOSINOPHILS # (AUTO) 0.2 (0.0-0.4); EOSINOPHILS % 3.8 % (0.0-6.0); HEMATOCRIT 31.8 % (34.2-44.1); HEMOGLOBIN 10.3 g/dL (12.0-16.0); LYMPHOCYTES # (AUTO) 0.6 (1.0-3.2); LYMPHOCYTES % 10.8 % (18.0-39.1); MEAN CORPUSCULAR HGB CONC 32.4 g/dL (31-35); MEAN CORPUSCULAR VOLUME 92.7 fL (81-99); MONOCYTES # (AUTO) 0.7 (0.2-0.8); MONOCYTES % 13.4 % (4.4-11.3); NEUTROPHILS # (AUTO) 3.8 (2.1-6.9); PLATELET COUNT 259 x10e3/uL (140-360); RED BLOOD COUNT 3.43 x10e6/uL (3.6-5.1); RED CELL DISTRIBUTION WIDTH 14.5 % (11.7-14.4)
[2019-02-28 06:08] LABS: INR 1.05; PROTHROMBIN TIME 14.2 seconds (11.9-14.5)
[2019-02-28] MEDS ORDERED: ALBUTEROL/IPRATROPIUM 3 ML NEB NEB PRN (06:15)
[2019-02-28 06:19] LABS: ANION GAP 13.2 mmol/L (8-16); BLOOD UREA NITROGEN 17 mg/dL (7-26); BUN/CREATININE RATIO 24 (6-25); CALCIUM 9.7 mg/dL (8.4-10.2); CARBON DIOXIDE 25 mmol/L (22-29); CHLORIDE 108 mmol/L (98-107); EST GLOMERULAR FILTRATION RATE > 60 ML/MIN (60-); GLUCOSE 87 mg/dL (74-118); POTASSIUM 4.2 mmol/L (3.5-5.1); SODIUM 142 mmol/L (136-145)
--- NOTE | 2019-02-28 07:42 | Diagnostic Imaging Report ---
EXAMINATION: CHEST SINGLE (PORTABLE) INDICATION: ^CHEST PAIN ^[id number] ^0630 ^Y COMPARISON: 02/20/2019 FINDINGS: AP view TUBES and LINES: None. LUNGS: Limited by slight rotation. Lungs are well inflated. Mild central vascular congestion. PLEURA: No pneumothorax. Small left pleural effusion. HEART AND MEDIASTINUM: Cardiac silhouette is borderline enlarged. Aorta is calcified and tortuous. BONES AND SOFT TISSUES: No acute osseous lesion. Soft tissues are unremarkable. UPPER ABDOMEN: No free air under the diaphragm. IMPRESSION: Mild central vascular congestion. Prominent cardiac silhouette and small left pleural effusion. Signed by: Dr. Lobito Adame MD on 02/28/2019 7:39 AM
[2019-02-28] MEDS: PANTOPRAZOLE SOD 40 MG TABEC PO SCH (08:05)
[2019-02-28] MEDS: DOCUSATE SODIUM 100 MG CAP PO SCH ×2 (08:05→16:55)
[2019-02-28] MEDS: CLONIDINE HCL 0.1 MG TAB PO SCH ×2 (08:05→16:55)
[2019-02-28] MEDS: METOPROLOL TARTRATE 50 MG TAB PO SCH ×2 (08:05→16:55)
[2019-02-28] MEDS: CEPHALEXIN 500 MG CAP PO SCH ×3 (09:04→21:11)
--- NOTE | 2019-02-28 12:47 | History and Physical ---
CHIEF COMPLAINT: An 83-year-old female comes in with back pain. HISTORY OF PRESENTING ILLNESS: Ms. Carley Dai comes in with back pain. The patient started off with back pain about a week ago, was treated for UTI in this hospital, the patient went back. The patient's back pain increased in intensity as mentioned is about 8/10 in intensity. The patient came in, was found to have a CT scan was done, which shows a vertebral fracture at L1. PAST MEDICAL HISTORY: History of coronary artery disease, history of hypertension, history of hyperlipidemia, history of reflux esophagitis, and history of asthma. MEDICINES: She takes at home was cephalexin 500 mg 3 times a day; this is for UTI. Clonidine 0.1 mg twice a day, losartan-hydrochlorothiazide 1 tablet b.i.d., metoprolol 50 mg b.i.d., 34 mg at bedtime, ondansetron 4 mg q.6 hours p.r.n., pantoprazole 40 mg daily, simvastatin 40 mg daily, and one dose inhalation daily. PAST SURGICAL HISTORY: History of hysterectomy, history of cataract removal, history of lens implants, and history of right hip replacement recently. REVIEW OF SYSTEMS: Positive for chest pain today. Positive for some shortness of breath. Positive for nausea. No vomiting. No diarrhea. No constipation. No rectal bleeding. Positive for back pain. FAMILY HISTORY: Noncontributory. ALLERGIES: ALLERGIC TO HYDRALAZINE, MEPERIDINE, MORPHINE AND TRAMADOL. PHYSICAL EXAMINATION: GENERAL: The patient is alert and oriented x3. She is complaining of some chest pain and some shortness of breath, back pain persistent. HEENT: Normocephalic, atraumatic. CVS: S1, S2 normal. Regular rate and rhythm. ABDOMEN: Little distended. EXTREMITIES: No clubbing, no cyanosis, and no edema. SPINE: The patient's back is tender and no decub present. LABORATORY VALUES: White count is 5.30, hemoglobin of 10.3, hematocrit 31.8. Chemistry shows sodium of 140, potassium of 3.0, BUN of 27, creatinine 0.66. Coags are PT and INR pending. Urine is normal. Microbiology, none done. IMAGING STUDIES: Abdominal CT and lumbar CT shows diffuse osseous demineralization with anterior wedge compression of the L2 and CT of the lumbar spine shows chronic compression fracture of L2 and also acute compression fracture of L1. Mild chronic degenerative changes in L3 and L4, and CT of the abdomen was essentially negative. ASSESSMENT: This is an 83-year-old lady with. 1. Acute compression fracture of the L1 vertebrae. The patient is scheduled for vertebroplasty today. 2. Hypertension. Continue on antihypertensive. 3. Chest pain. We will go ahead and draw troponin and also EKG on her. 4. Constipation. We will start the patient on Colace 100 mg twice a day. 5. DVT prophylaxis with SCDs. 6. Restart the patient on albuterol, Atrovent treatments for asthma. 7. Further recommendation per clinical course. The patient is scheduled for a vertebroplasty today. MD CORIE Sheriff/MODL /[id number]
[2019-02-28] MEDS: SIMVASTATIN 40 MG TAB PO SCH (21:11)
[2019-03-01] VITALS (9 sets, daily range): BP systolic 115–169; BP diastolic 57–99
[2019-03-01] MEDS: CEPHALEXIN 500 MG CAP PO SCH ×3 (05:03→21:27)
[2019-03-01 05:43] LABS: BASOPHILS % 0.4 % (0.0-1.0); EOSINOPHILS # (AUTO) 0.4 (0.0-0.4); EOSINOPHILS % 7.1 % (0.0-6.0); HEMATOCRIT 29.8 % (34.2-44.1); HEMOGLOBIN 9.6 g/dL (12.0-16.0); LYMPHOCYTES # (AUTO) 0.6 (1.0-3.2); LYMPHOCYTES % 11.4 % (18.0-39.1); MEAN CORPUSCULAR HEMOGLOBIN 29.9 pg (28-32); MEAN CORPUSCULAR HGB CONC 32.2 g/dL (31-35); MEAN CORPUSCULAR VOLUME 92.8 fL (81-99); MONOCYTES # (AUTO) 0.9 (0.2-0.8); NEUTROPHILS # (AUTO) 3.6 (2.1-6.9); NEUTROPHILS % 64.7 % (38.7-80.0); PLATELET COUNT 237 x10e3/uL (140-360); RED BLOOD COUNT 3.21 x10e6/uL (3.6-5.1); RED CELL DISTRIBUTION WIDTH 14.2 % (11.7-14.4)
[2019-03-01 06:09] LABS: ANION GAP 11.6 mmol/L (8-16); BLOOD UREA NITROGEN 19 mg/dL (7-26); BUN/CREATININE RATIO 28 (6-25); CALCIUM 9.5 mg/dL (8.4-10.2); CARBON DIOXIDE 26 mmol/L (22-29); CHLORIDE 105 mmol/L (98-107); CREATININE, SERUM 0.69 mg/dL (0.57-1.11); EST GLOMERULAR FILTRATION RATE > 60 ML/MIN (60-); GLUCOSE 97 mg/dL (74-118); POTASSIUM 4.6 mmol/L (3.5-5.1); SODIUM 138 mmol/L (136-145)
[2019-03-01] MEDS: ONDANSETRON HCL INJ 2MG/ML 2ML 2 MG/ML VIAL IV PRN ×3 (06:14→21:27)
[2019-03-01] MEDS: HYDROMORPHONE 1MG/1ML INJ IV PRN ×3 (06:16→21:27)
--- NOTE | 2019-03-01 06:23 | NUR ---
DR SIMON IN UNIT,SAW PT.N/O RECEIVED AND ENTERED.
--- NOTE | 2019-03-01 06:59 | NUR ---
REPORT GIVEN TO ONCOMING NURSE.WALKING ROUNDS MADE.PT RESTING IN BED WITH NO S/S OF DISTRESS.
[2019-03-01] MEDS ORDERED: METOPROLOL TARTRATE INJ 1 MG/ML VIAL IV ONE (07:00)
[2019-03-01] MEDS ORDERED: SODIUM CHLORIDE 0.9% 250ML 250 ML ONE (07:40)
[2019-03-01] MEDS ORDERED: LIDOCAINE HCL 1% LOCAL INJ 20 ML VIAL ONE (07:40)
--- NOTE | 2019-03-01 08:01 | Progress Note ---
DATE: SUBJECTIVE: An 83-year-old female, who comes in with lumbar L1 fracture. The patient is scheduled for vertebroplasty today. The patient did not have the procedure yesterday because she was not kept n.p.o. No chest pain. No shortness of breath. No nausea or vomiting. No diarrhea. No shortness of breath either. The patient has been getting albuterol and Atrovent treatments, which has helped with shortness of breath. OBJECTIVE: VITAL SIGNS: Temperature is 98.0, respirations of 20, blood pressure is 144/64, pulse oximetry of 93%. HEENT: Normocephalic, atraumatic. Pupils are reactive to light and accommodation. CVS: S1 and S2 normal. Regular rate and rhythm. ABDOMEN: Nontender, nondistended, scaphoid. EXTREMITIES: No clubbing, no cyanosis, no edema. SCDs in place. LABORATORY VALUES: Pending for today. Coags have been normal since initial admission. White count today is 5.5, hemoglobin of 9.6, hematocrit of 39.8. Chemistries are pending. ASSESSMENT: An 83-year-old lady with: 1. Acute compression fracture of the vertebra. 2. Hypertension. 3. Constipation. 4. History of coronary artery disease. PLAN: Continue with all home medication. She has been advised to take metoprolol before procedure. Further recommendation per clinical course. The patient will have a kyphoplasty today. MD CORIE Sheriff/MODL /[id number]
[2019-03-01] MEDS: CLONIDINE HCL 0.1 MG TAB PO SCH ×2 (08:23→16:48)
[2019-03-01] MEDS: DOCUSATE SODIUM 100 MG CAP PO SCH ×2 (08:23→16:48)
[2019-03-01] MEDS: METOPROLOL TARTRATE 50 MG TAB PO SCH ×2 (08:23→16:49)
[2019-03-01] MEDS: PANTOPRAZOLE SOD 40 MG TABEC PO SCH (08:23)
[2019-03-01] MEDS ORDERED: IOPAMIDOL 370 MG/ML 200 ML INFUS..BTL INJ ONE (10:03)
--- NOTE | 2019-03-01 11:55 | NUR ---
RECEIVED REPORT FROM JARAD . PT HAD KYPHOPLASTY PT IS TO LAY FLAT UNTIL 1300 AWAITING FOR PT TO ARRIVE TO FLOOR
--- NOTE | 2019-03-01 12:09 | NUR ---
PT BACK FROM PROCEDURE AA0X3 PT IS IN NO S/S OF DISTRESS. STATES FEELING COMFORTABLE PT IS LAYING FLAT AT THIS TIME ON AT 2L SATING 95% WILL CONTINUE TO MONITOR PT CLOSELY SIDE RAILSX2, BED WHEELS LOCKED CALL LIGHT IS WITHIN EASY REACH, INSTRUCTED TO CALL FOR ASSISTANCE IF NEEDED FAMILY IS AT BEDSIDE
--- NOTE | 2019-03-01 12:50 | NUR ---
md bonilla states its ok for physical therapy to work with pt after 1300 today
[2019-03-01] MEDS ORDERED: SEVOFLURANE INHAL SOLN 250 ML PEN BTL ONE (14:09)
[2019-03-01] MEDS ORDERED: LIDOCAINE HCL 2% LOCAL INJ 5 ML SDV VIAL INJ ONE (14:09)
[2019-03-01] MEDS ORDERED: DEXAMETHASONE SOD PHOS INJ 4 MG/ML VIAL ONE (14:09)
[2019-03-01] MEDS ORDERED: PROPOFOL IV EMULSION 10 MG/ML 20 ML VIAL ONE (14:09)
[2019-03-01] MEDS ORDERED: CEFAZOLIN SOD 1 GM VIAL ONE (14:09)
[2019-03-01] MEDS ORDERED: ONDANSETRON HCL INJ 2MG/ML 2ML 2 MG/ML VIAL ONE (14:09)
[2019-03-01] MEDS ORDERED: SUCCINYLCHOLINE 200 MG/10 ML SYR ONE (14:09)
--- NOTE | 2019-03-01 14:40 | NUR ---
Visit made by the Spiritual Care Department Pastoral Visitor, Ambar Beasley. PV provided pastoral presence, hospitality, and supportive listening. Pastoral Visitor informed pt/family of the scope of [employer] and availability. MATIAS CASTILLO Leno [facility] Spiritual Care Department O: [phone] Pager: [phone] ([phone] number calling from)
--- NOTE | 2019-03-01 15:23 | Diagnostic Imaging Report ---
PROCEDURE: Vertebral augmentation with cavity creation Procedural Personnel Attending physician(s): Phani Tesfaye MD Fellow physician(s): None Resident physician(s): None Advanced practice provider(s): None Pre-procedure diagnosis: Acute osteoporotic compression fracture of L1 Post-procedure diagnosis: Same Indication: Osteoporotic compression fracture Additional clinical history: None Complications: No immediate complications. IMPRESSION: Vertebral augmentation with cavity creation of L1. A bone biopsy was not performed. Plan: To PACU for recovery. Lie flat supine for 2 hours. PROCEDURE SUMMARY: - Fluoroscopic guided vertebral augmentation with cavity creation at L1 - Additional procedure(s): None PROCEDURE DETAILS: Pre-procedure Consent: Informed consent for the procedure including risks, benefits and alternatives was obtained and time-out was performed prior to the procedure. Preparation: The site was prepared and draped using maximal sterile barrier technique including cutaneous antisepsis. Anesthesia/sedation Level of anesthesia/sedation: General anesthesia Anesthesia/sedation administered by: Anesthesiology Biopsy Biopsy: Not performed Vertebral augmentation with cavity creation Target fracture level(s): L1 Pedicle access: Bipedicular Access trocar(s) gauge: 11 gauge Cavity creation device utilized: 15 mm balloon Cement type: Vertaplex HV bone cement. Warehouse Shift Supervisor: Eleno Clinically significant cement leak occurrence: No Closure The devices were removed and hemostasis was achieved with manual compression. A sterile bandage was applied. Radiation Dose Fluoroscopy time (minutes): 8.0 Reference air kerma (mGy): 95.5 Additional Details Additional description of procedure: None Equipment details: None Specimens removed: None Estimated blood loss (mL): Less than 10 Standardized report: [id number] Attestation Signer name: Phani Tesfaye MD I attest that I was present for the entire procedure. I reviewed the stored images and agree with the report as written. Supplemental information: Relevant imaging review (modality confirming fracture): CT Date of study: 02/27/2019 Baseline numeric pain rating scale: 10/10 Baseline Bentley Russ score: N/A On-going, routine back pain prior to VCF diagnosis: No Patient currently using steroids: No Failure of non-operative treatment for routine back pain prior to VCF diagnosis: Yes Comprehensive pain evaluation performed prior to procedure: Yes Non-operative treatment prior to procedure: Yes - local analgesics Non-operative treatment timeframe: Less than 1 month Rationale for no conservative treatment measures taken, if applicable: Inability to perform activities of daily living or self-care, intractable pain Fracture history: Acute (<5 days) Neurologically intact at levels relevant to treatment: Yes Osteoporosis: Primary Osteoporosis treatment: N/A Dexa scan score: N/A Is the fracture greater than or equal to 4 months old without edema? No Does the patient have foraminal stenosis? No Does the patient have any other degenerative spine diseases? Yes Does the patient have facet anthropathy? Yes Does the patient have other significant coexistent consistent spiny bone generators? No Did the patient have any other concurrent procedures? No Does the patient have an unstable fracture in the same/adjacent spinal region? No Does the patient have painful metastases? No Did the patient receive the procedure as prophylactic treatment for osteoporosis? No Signed by: hPani Tesfaye MD on 03/01/2019 3:19 PM
[2019-03-01] MEDS ORDERED: FENTANYL CITRATE/PF 100MCG/2 ML INJ ONE (18:06)
--- NOTE | 2019-03-01 19:00 | NUR ---
RECEIVED PATIENT IN BEDSIDE REPORT. PATIENT RESTING IN BED, STATES PAIN IS 4/10 AT THIS TIME, MANAGEABLE. NO S&S OF DISTRESS NOTED. R FA 20G IV ASYMPTOMATIC, INTACT, AND PATENT. BED LOCKED IN LOWEST POSITION, SIDE RAILS UPX2, CALL LIGHT IN REACH.
[2019-03-01] MEDS: SIMVASTATIN 40 MG TAB PO SCH (21:27)
[2019-03-02 04:45] VITALS: BP 138/63
[2019-03-02] MEDS: CEPHALEXIN 500 MG CAP PO SCH (06:04)
--- NOTE | 2019-03-02 07:21 | NUR ---
Received patient lying in bed with eyes open. Respiration even and unlabored without SOB. Call light in reach.
--- NOTE | 2019-03-02 08:13 | Progress Note ---
DATE: Progress Note and Discharge Note SUBJECTIVE: The patient is an 83-year-old female, who comes in with acute intractable pain. The patient underwent a kyphoplasty yesterday. She had no complaints. The patient was able to sit by the side of the bed and the pain has decreased markedly. The patient does complain of some back pain that was residual and also pain in the left knee that has been bothering her in the last couple of days. No complaints otherwise. No chest pain. No shortness of breath. No nausea, vomiting, or diarrhea. Feeling in good spirits. OBJECTIVE: VITAL SIGNS: Temperature is 97.6, pulse of 79, respirations of 16, blood pressure is 138/63, pulse oximetry of 95%. HEENT: Normocephalic, atraumatic. Pupils are reactive to light and accommodation. CVS: S1 and S2 normal. Regular rate and rhythm. ABDOMEN: Nontender, nondistended. EXTREMITIES: No clubbing, no cyanosis, no edema. Left knee with tenderness and also erythema and redness. The patient's back has a bandage to it, otherwise normal. LABORATORY VALUES: None done today. The patient's sodium and potassium have been normal. ASSESSMENT: 1. An 83-year-old female, status post kyphoplasty. Plan, discharge home. The patient will get dose of 20 mg of Solu-Medrol for possible arthritic condition on her knee and/or gouty arthritis in her knee. 2. Acute compression fracture, status post kyphoplasty. 3. Hypertension. Continue medication. 4. Constipation. Continue with mibs-nox-vjmktdw laxatives as needed. 5. History of coronary artery disease. Continue on CV medication. The patient will be seen in my clinic in about a week's time. MD CORIE Sheriff/SIXTOL /[id number]
[2019-03-02 08:30] VITALS: BP 145/66
[2019-03-02] MEDS ORDERED: METHYLPREDNISOLONE SOD SUCC 40 MG/ML VIAL 1ML IV ONE (08:30)
[2019-03-02 09:16] VITALS: BP 145/66
[2019-03-02] MEDS: DOCUSATE SODIUM 100 MG CAP PO SCH (09:31)
[2019-03-02] MEDS: CLONIDINE HCL 0.1 MG TAB PO SCH (09:31)
[2019-03-02] MEDS: PANTOPRAZOLE SOD 40 MG TABEC PO SCH (09:32)
[2019-03-02] MEDS: METOPROLOL TARTRATE 50 MG TAB PO SCH (09:32)
--- NOTE | 2019-03-02 11:21 | NUR ---
PIV to right FA discontinued, catheter intact, no bleeding noted.
--- NOTE | 2019-03-02 11:36 | NUR ---
Patient is transported via wheelchair for discharge. All belongings are with the spouse. Respiration even and unlabored without SOB.
== END 2019-03-02 11:37 | disposition home or self-care (01) | DRG 517 ==
LOC: ER 05:03 → ERHOLD 07:44 → MED/SURG 14:16
PROVIDERS: ADMIT Family Medicine; ATTEND Family Medicine
PROC: 0QS03ZZ Reposition Lumbar Vertebra, Percutaneous Approach (ICD-10-PCS; principal; 2019-03-01)
PROC: 0QU03JZ Supplement Lumbar Vertebra with Synthetic Substitute, Percutaneous Approach (ICD-10-PCS; 2019-03-01)
DX: M80.88XA Other osteoporosis with current pathological fracture, vertebra(e), initial encounter for fracture (principal); I10 Essential (primary) hypertension; K59.00 Constipation, unspecified; R07.9 Chest pain, unspecified; I25.10 Atherosclerotic heart disease of native coronary artery without angina pectoris; E78.5 Hyperlipidemia, unspecified; Z96.641 Presence of right artificial hip joint
CPT/HCPCS: 22514; 36415; 71045; 72131; 74176; 74470; 80048; 80053; 81001; 84484; 85025; 85610; 93041; 99284; J0690; J1100; J1170; J2001; J2405; J2550; J2920; J3010; J7050; Q9967

== ENCOUNTER 2019-05-02 13:49 | Inpatient (IN) | payer MEDICARE ==
[~2019-05-02] VITALS: Ht 157.5 cm; Wt 54.9 kg
[2019-05-02 14:35] LABS: BASOPHILS % 0.3 % (0.0-1.0); HEMOGLOBIN 12.1 g/dL (12.0-16.0); LYMPHOCYTES # (AUTO) 0.7 (1.0-3.2); LYMPHOCYTES % 5.1 % (18.0-39.1); MEAN CORPUSCULAR HEMOGLOBIN 29.7 pg (28-32); MEAN CORPUSCULAR HGB CONC 33.6 g/dL (31-35); MEAN CORPUSCULAR VOLUME 88.2 fL (81-99); MONOCYTES # (AUTO) 0.7 (0.2-0.8); MONOCYTES % 5.4 % (4.4-11.3); NEUTROPHILS % 88.7 % (38.7-80.0); PLATELET COUNT 285 x10e3/uL (140-360); RED BLOOD COUNT 4.08 x10e6/uL (3.6-5.1); RED CELL DISTRIBUTION WIDTH 13.6 % (11.7-14.4)
[2019-05-02 14:39] LABS: BILIRUBIN,URINE NEGATIVE (NEGATIVE); CLARITY,URINE CLEAR (CLEAR); COLOR,URINE YELLOW (YELLOW); KETONES,URINE 1+ (NEGATIVE); LEUKOCYTE ESTERASE ,URINE NEGATIVE (NEGATIVE); NITRITE,URINE NEGATIVE (NEGATIVE); URINE UROBILINOGEN 0.2 mg/dL (0.2 - 1)
[2019-05-02 14:46] LABS: INR 1.09; PARTIAL THROMBOPLASTIN TIME 26.4 seconds (23.8-35.5); PROTHROMBIN TIME 14.6 seconds (11.9-14.5)
[2019-05-02 14:48] LABS: PROTEIN,URINE DIPSTICK 2+ (NEGATIVE)
[2019-05-02 14:55] LABS: AMORPHOUS SEDIMENT,URINE MODERATE (FEW); BACTERIA,URINE MODERATE /HPF
[2019-05-02 14:56] LABS: ALANINE AMINOTRANSFERASE 15 IU/L (0-55); ALBUMIN 3.3 g/dL (3.5-5.0); ALBUMIN/GLOBULIN RATIO 0.8 (0.8-2.0); ALKALINE PHOSPHATASE 78 IU/L (40-150); ANION GAP 16.5 mmol/L (8-16); BLOOD UREA NITROGEN 18 mg/dL (7-26); BUN/CREATININE RATIO 27 (6-25); CALCIUM 9.9 mg/dL (8.4-10.2); CARBON DIOXIDE 21 mmol/L (22-29); CHLORIDE 103 mmol/L (98-107); CREATINE KINASE 22 IU/L (29-168); CREATININE, SERUM 0.66 mg/dL (0.57-1.11); EST GLOMERULAR FILTRATION RATE > 60 ML/MIN (60-); GLUCOSE 117 mg/dL (74-118); SODIUM 138 mmol/L (136-145)
[2019-05-02] MEDS ORDERED: FAMOTIDINE 20 MG/2 ML VIAL IV ONE (15:02)
[2019-05-02] MEDS ORDERED: ONDANSETRON HCL INJ 2MG/ML 2ML 2 MG/ML VIAL IV ONE (15:02)
[2019-05-02] MEDS ORDERED: POTASSIUM CHLORIDE 20MEQ/15ML UDC PO ONE (15:02)
[2019-05-02] MEDS ORDERED: METRONIDAZOLE 500MG/NS 100ML 100 ML IV ONE (15:02)
[2019-05-02] MEDS ORDERED: SODIUM CHLORIDE 0.9% 1000ML 1,000 ML IV STA (15:02)
[2019-05-02] MEDS ORDERED: POTASSIUM CHLORIDE 20 MEQ TAB CR PO ONE (15:02)
[2019-05-02 15:03] LABS: POTASSIUM 2.5 mmol/L (3.5-5.1)
[2019-05-02] MEDS ORDERED: SODIUM CHLORIDE 0.9% 1000ML 1,000 ML IV SCH (15:15)
[2019-05-02] MEDS ORDERED: FENTANYL CITRATE/PF 100MCG/2 ML INJ IV ONE ×2 (15:15)
[2019-05-02] MEDS ORDERED: KCL 20MEQ/.9 SOD CHL 1,000 ML IV ONE ×2 (15:15)
[2019-05-02] MEDS ORDERED: DIATRIZOATE MEGL/DIATRIZOA SOD 30 ML BTL PO ONE (15:18)
[2019-05-02 15:28] LABS: MAGNESIUM 2.1 MG/DL (1.3-2.1)
--- NOTE | 2019-05-02 15:43 | Diagnostic Imaging Report ---
Chest, portable AP view History: Abdominal pain, vomiting Comparison: 02/28/2019 IMPRESSION: The heart is within normal limits of size. The aorta has a tortuous appearance. There is no focal consolidation, sizable pleural effusion, or pneumothorax. Patient is status post vertebral augmentation of L1. No acute osseous abnormalities are identified. Signed by: Jarrett Colunga MD on 05/02/2019 3:40 PM
[2019-05-02 15:49] LABS: THYROID STIMULATING HORMONE 1.325 uIU/mL (0.350-4.940)
[2019-05-02] MEDS ORDERED: CIPROFLOXACIN 400 MG/D5W 200ML 200 ML IV ONE (16:00)
[2019-05-02] MEDS ORDERED: POTASSIUM CHLORIDE 20MEQ/100ML 100 ML IV ONE (16:00)
--- NOTE | 2019-05-02 16:58 | Diagnostic Imaging Report ---
CT of the abdomen and pelvis History: Vomiting, abdominal pain Comparison: CT of the abdomen and pelvis dated 02/20/2019 and 02/27/2019 Technique: Multidetector CT scanning of the abdomen and pelvis was performed from the level of the lung bases to the inferior pubic ramus with IV and oral contrast DOSE REDUCTION: The examination was performed according to departmental dose-optimization program which includes automated exposure control, adjustment of the mA and/or kV according to patient size and/or use of iterative reconstruction technique. Discussion: There is minimal dependent atelectasis at the left lung base. No focal hepatic lesions are identified. The gallbladder is present and nondistended. No intrahepatic or extrahepatic biliary dilatation. The spleen is within normal limits. The bilateral adrenal glands are unremarkable. The pancreas is homogeneous in attenuation. No pancreatic ductal dilatation or peripancreatic inflammatory stranding. The kidneys are normal in size and enhance symmetrically. No hydroureteronephrosis bilaterally. No renal calculi. The stomach, small, and large bowel are nondistended. There is no evidence of obstruction. Appendix is normal in caliber. Mild wall thickening of the ascending colon and proximal transverse colon may be secondary to colitis. There is diverticulosis of the descending and sigmoid colon. No evidence of acute diverticulitis. There is no free intraperitoneal air or obstruction. The urinary bladder is within normal limits. The uterus is surgically absent. No acute osseous abnormalities are identified. There are unchanged postsurgical and degenerative changes of the right hip with heterotopic ossification. The proximal left femur is posteriorly and superiorly displaced with respect to the acetabulum. Patient is status post vertebral augmentation of the L1 vertebral body. IMPRESSION: 1. Mild wall thickening of the ascending and proximal transverse colon which may be secondary to inflammatory or infectious colitis. 2. No evidence of bowel obstruction. 3. Colonic diverticulosis without evidence of acute diverticulitis. Signed by: Jarrett Colunga MD on 05/02/2019 4:54 PM
[2019-05-02] MEDS: FAMOTIDINE 20 MG/2 ML VIAL IV SCH (18:52)
[2019-05-02] MEDS ORDERED: SODIUM CHLORIDE 0.9% 50ML 50 ML ONE (22:22)
[2019-05-02] MEDS ORDERED: IOPAMIDOL 370 MG/ML 200 ML INFUS..BTL INJ ONE (22:23)
[2019-05-02] MEDS: METRONIDAZOLE 500MG/NS 100ML 100 ML IV SCH (22:54)
[2019-05-02] MEDS: ONDANSETRON HCL INJ 2MG/ML 2ML 2 MG/ML VIAL IV PRN (23:20)
[2019-05-03] VITALS (10 sets, daily range): BP systolic 101–187; BP diastolic 43–100
--- NOTE | 2019-05-03 00:45 | NUR ---
PATIENT CAME FROM ER AWAKE ALERT ORIENTED, IV FLUIDS RUNNING, CAME WITH STRETCHER, COMPLAINED OF RIGHT HIP PAIN. AND NAUSEA. VITALS CHECKED. MD NOTIFIED ABOUT HER COMPLAINED AND HER ELEVATED BP.AWAITING FOR ORDERS.
--- NOTE | 2019-05-03 01:23 | NUR ---
PATIENT IS ASLEEP AT THIS MOMENT. NO DISTRESS NOTED, STILL MONITORING ON ELEVATED BP.
[2019-05-03] MEDS: CIPROFLOXACIN 400 MG/D5W 200ML 200 ML IV SCH ×2 (03:25→15:32)
[2019-05-03] MEDS: ONDANSETRON HCL INJ 2MG/ML 2ML 2 MG/ML VIAL IV PRN ×3 (04:20→12:25)
[2019-05-03] MEDS: METRONIDAZOLE 500MG/NS 100ML 100 ML IV SCH ×4 (04:30→20:47)
[2019-05-03 05:07] LABS: BASOPHILS % 0.2 % (0.0-1.0); LYMPHOCYTES # (AUTO) 0.6 (1.0-3.2); LYMPHOCYTES % 5.8 % (18.0-39.1); MEAN CORPUSCULAR HEMOGLOBIN 29.8 pg (28-32); MEAN CORPUSCULAR HGB CONC 32.4 g/dL (31-35); MONOCYTES # (AUTO) 0.7 (0.2-0.8); MONOCYTES % 6.7 % (4.4-11.3); NEUTROPHILS # (AUTO) 8.5 (2.1-6.9); NEUTROPHILS % 86.8 % (38.7-80.0); PLATELET COUNT 230 x10e3/uL (140-360); RED BLOOD COUNT 3.69 x10e6/uL (3.6-5.1); RED CELL DISTRIBUTION WIDTH 13.9 % (11.7-14.4)
[2019-05-03] MEDS: HYDROMORPHONE 1MG/1ML INJ IV PRN ×2 (05:35→12:25)
[2019-05-03 05:36] LABS: MEAN CORPUSCULAR VOLUME 92.1 fL (81-99)
[2019-05-03 05:45] LABS: ALANINE AMINOTRANSFERASE 14 IU/L (0-55); ALBUMIN 2.8 g/dL (3.5-5.0); ALBUMIN/GLOBULIN RATIO 0.7 (0.8-2.0); ALKALINE PHOSPHATASE 65 IU/L (40-150); ANION GAP 16.9 mmol/L (8-16); BLOOD UREA NITROGEN 14 mg/dL (7-26); BUN/CREATININE RATIO 21 (6-25); CALCIUM 8.8 mg/dL (8.4-10.2); CARBON DIOXIDE 18 mmol/L (22-29); CHLORIDE 109 mmol/L (98-107); CREATININE, SERUM 0.68 mg/dL (0.57-1.11); EST GLOMERULAR FILTRATION RATE > 60 ML/MIN (60-); GLUCOSE 123 mg/dL (74-118); LIPASE 6 U/L (8-78); SODIUM 141 mmol/L (136-145)
[2019-05-03 05:48] LABS: POTASSIUM 2.9 mmol/L (3.5-5.1)
--- NOTE | 2019-05-03 05:57 | NUR ---
POTASSIUM LEVEL THIS MORNING 2.9; MD NOTIFIED, ORDERS RECEIVED.
[2019-05-03] MEDS ORDERED: POTASSIUM CHLORIDE 20MEQ/100ML 200 ML IV ONE (06:00)
--- NOTE | 2019-05-03 06:17 | NUR ---
CALLED AND LEFT A MESSAGE TO DR KENNEDY'S OFFICE, THAT PATIENT IS CONSULTED TO HIM .
--- NOTE | 2019-05-03 06:54 | NUR ---
REPORTS GIVEN TO UPCOMING SHIFT.
--- NOTE | 2019-05-03 07:00 | NUR ---
Pt received resting in bed. Alert and oriented x4. Oriented to staff and surroundings. Encouraged to press call sánchez if help needed. Emotional support given. Call sánchez within reach. Will monitor
[2019-05-03] MEDS: FAMOTIDINE 20 MG/2 ML VIAL IV SCH ×2 (08:23→18:41)
[2019-05-03] MEDS ORDERED: SIMVASTATIN 40 MG TAB PO SCH (09:00)
--- NOTE | 2019-05-03 09:54 | NUR ---
Called Dr. Vargas's office regarding consult. Spoke to [place]. Will Follow up
[2019-05-03] MEDS ORDERED: PROMETHAZINE 25MG/ NS 50ML (IV) IV PRN (10:15)
--- NOTE | 2019-05-03 10:42 | NUR ---
Received a call back from Dr. Moreno. He stated that he will see pt this evening
[2019-05-03] MEDS: CLONIDINE HCL 0.1 MG TAB PO SCH ×2 (12:13→18:41)
[2019-05-03] MEDS: PANTOPRAZOLE SOD 40 MG TABEC PO SCH (12:14)
[2019-05-03] MEDS: LOSARTAN POTASSIUM 100 MG TAB PO SCH (12:14)
[2019-05-03] MEDS: METOPROLOL TARTRATE 50 MG TAB PO SCH ×2 (12:14→18:42)
--- NOTE | 2019-05-03 13:45 | NUR ---
Visit made by the Spiritual Care Department Pastoral Visitor, Ambar Beasley. PV provided pastoral presence, hospitality, and supportive listening. Pastoral Visitor informed pt/family of the scope of [employer] and availability. MATIAS CASTILLO Supervisor Diagnostic Spiritual Care Department O: [phone] Pager: [phone] ([phone] number calling from)
[2019-05-03] MEDS ORDERED: PROMETHAZINE 12.5MG/ NACL 0.9% 12.5 MG/50 ML BAG IV PRN (16:30)
--- NOTE | 2019-05-03 19:21 | NUR ---
Pt resting comfortably in bed. Handoff given to oncoming nurse
[2019-05-03] MEDS: NISOLDIPINE 8.5 MG PO SCH (21:41)
[2019-05-03] MEDS: SIMVASTATIN 40 MG TAB PO SCH (21:42)
[2019-05-03] MEDS: BALSAM PERU/CASTOR OIL 60 GM OINT...G. TP SCH (21:42)
[2019-05-04] VITALS (8 sets, daily range): BP systolic 115–156; BP diastolic 43–70
[2019-05-04] MEDS: METRONIDAZOLE 500MG/NS 100ML 100 ML IV SCH ×2 (02:18→08:17)
[2019-05-04] MEDS: CIPROFLOXACIN 400 MG/D5W 200ML 200 ML IV SCH (03:02)
[2019-05-04] MEDS: FAMOTIDINE 20 MG/2 ML VIAL IV SCH (08:17)
--- NOTE | 2019-05-04 08:17 | NUR ---
PT STABLE, C/O NAUSEA. HOLDING PO MEDS AT THIS TIME, PHENERGAN ADMIN
[2019-05-04] MEDS: METOPROLOL TARTRATE 50 MG TAB PO SCH ×2 (09:33→17:08)
[2019-05-04] MEDS: LOSARTAN POTASSIUM 100 MG TAB PO SCH (09:33)
[2019-05-04] MEDS: BALSAM PERU/CASTOR OIL 60 GM OINT...G. TP SCH ×2 (09:33→21:00)
[2019-05-04] MEDS: PANTOPRAZOLE SOD 40 MG TABEC PO SCH (09:33)
[2019-05-04] MEDS: CLONIDINE HCL 0.1 MG TAB PO SCH ×2 (09:33→17:08)
[2019-05-04] MEDS: ALBUTEROL SULF 0.083% NEB SOLN 3 ML NEB NEB SCH (13:35)
[2019-05-04] MEDS ORDERED: ALBUTEROL SULF 0.083% NEB SOLN 3 ML NEB ONE (13:39)
[2019-05-04] MEDS ORDERED: METRONIDAZOLE 500 MG TAB PO SCH (15:00)
[2019-05-04] MEDS ORDERED: CIPROFLOXACIN 500 MG TAB PO SCH (16:00)
[2019-05-04] MEDS: FAMOTIDINE 20 MG TAB PO SCH (17:05)
--- NOTE | 2019-05-04 20:30 | NUR ---
Received patient via hospital bed from [facility]. Alert and oriented. Telemetry in used. IV to right wrist intact. Patient is on Contact isolation.
[2019-05-04] MEDS: NISOLDIPINE 8.5 MG PO SCH (21:00)
[2019-05-04] MEDS: SIMVASTATIN 40 MG TAB PO SCH (21:00)
--- NOTE | 2019-05-04 21:21 | Progress Note ---
DATE: 05/04/2019 SUBJECTIVE: An 83-year-old female, came in with colitis. The patient has been on antibiotic ever since, has been advanced to a soft mechanical diet, is tolerating the diet. No chest pains. No shortness of breath. No diarrhea. No constipation. No abdominal pain at this time. OBJECTIVE: VITAL SIGNS: Temperature is 97.9, pulse of 67, blood pressure is 131/54, pulse oximetry of 99%. HEENT: Normocephalic and atraumatic. No icterus present. CVS: S1 and S2 normal. Regular rate and rhythm. ABDOMEN: Slight tenderness in the right lower quadrant. EXTREMITIES: No clubbing, no cyanosis, no edema. LABORATORY VALUES: From the 3rd, white count is 9.75, hemoglobin of 11, hematocrit 34. Chemistry; sodium of 141, potassium 2.9, BUN and creatinine 14 and 0.68. Microbiology, pending stool cultures. Blood cultures negative. Urine cultures have been negative. ASSESSMENT: An 83-year-old female with uncontrollable diarrhea, colitis, hypokalemia, and history of coronary artery disease, hypertension, hyperlipidemia. PLAN: We will continue the antibiotic at this time. The patient is on Levaquin and Cipro. We will continue the same. Check her labs tomorrow, stable. Advance her diet and can be discharged tomorrow. Further recommendation clinical course. MD CORIE Sheriff/MODL /[id number]
[2019-05-04] MEDS: VANCOMYCIN 250MG/5ML ORAL SOLN PO SCH (21:52)
[2019-05-05] MEDS: ALBUTEROL SULF 0.083% NEB SOLN 3 ML NEB NEB SCH (04:35)
[2019-05-05 04:50] VITALS: BP 134/63
[2019-05-05] MEDS: VANCOMYCIN 250MG/5ML ORAL SOLN PO SCH ×5 (05:07→23:27)
[2019-05-05 06:16] LABS: BASOPHILS % 0.5 % (0.0-1.0); EOSINOPHILS # (AUTO) 0.3 (0.0-0.4); EOSINOPHILS % 5.2 % (0.0-6.0); HEMATOCRIT 29.2 % (34.2-44.1); HEMOGLOBIN 9.6 g/dL (12.0-16.0); LYMPHOCYTES # (AUTO) 0.9 (1.0-3.2); LYMPHOCYTES % 14.6 % (18.0-39.1); MEAN CORPUSCULAR HGB CONC 32.9 g/dL (31-35); MEAN CORPUSCULAR VOLUME 91.3 fL (81-99); MONOCYTES # (AUTO) 0.6 (0.2-0.8); MONOCYTES % 9.3 % (4.4-11.3); NEUTROPHILS # (AUTO) 4.2 (2.1-6.9); NEUTROPHILS % 70.2 % (38.7-80.0); PLATELET COUNT 204 x10e3/uL (140-360); RED CELL DISTRIBUTION WIDTH 14.2 % (11.7-14.4)
[2019-05-05 06:39] LABS: ANION GAP 11.4 mmol/L (8-16); BLOOD UREA NITROGEN 19 mg/dL (7-26); BUN/CREATININE RATIO 31 (6-25); CALCIUM 8.6 mg/dL (8.4-10.2); CARBON DIOXIDE 21 mmol/L (22-29); CHLORIDE 112 mmol/L (98-107); CREATININE, SERUM 0.62 mg/dL (0.57-1.11); EST GLOMERULAR FILTRATION RATE > 60 ML/MIN (60-); GLUCOSE 103 mg/dL (74-118); MAGNESIUM 1.9 MG/DL (1.3-2.1); POTASSIUM 3.4 mmol/L (3.5-5.1); SODIUM 141 mmol/L (136-145)
--- NOTE | 2019-05-05 06:58 | NUR ---
BEDSIDE SHIFT REPORT RECEIVED FROM OFF GOING NURSE. PATIENT IS RESTING IN BED. NO ACUTE DISTRESS NOTED. CALL LIGHT WITHIN REACH. BED IN THE LOWEST POSITION. BED ALARM ON.
[2019-05-05 07:51] VITALS: BP 161/70
[2019-05-05] MEDS ORDERED: POTASSIUM CHLORIDE 20 MEQ TAB CR PO ONE (09:00)
[2019-05-05] MEDS: LOSARTAN POTASSIUM 100 MG TAB PO SCH (09:12)
[2019-05-05] MEDS: CLONIDINE HCL 0.1 MG TAB PO SCH ×2 (09:12→17:23)
[2019-05-05] MEDS: METOPROLOL TARTRATE 50 MG TAB PO SCH ×2 (09:13→17:23)
[2019-05-05] MEDS: PANTOPRAZOLE SOD 40 MG TABEC PO SCH (09:13)
[2019-05-05] MEDS: FAMOTIDINE 20 MG TAB PO SCH ×2 (09:13→17:23)
[2019-05-05] MEDS: ALBUTEROL SULF 0.083% NEB SOLN 3 ML NEB NEB PRN ×3 (09:20→19:35)
--- NOTE | 2019-05-05 09:57 | Progress Note ---
DATE: 05/05/2019 SUBJECTIVE: The patient is an 83-year-old female, who comes in with colitis, diagnosed with C diff colitis. The patient is currently on vancomycin, seen by Dr. Moreno. No chest pain. Does complain of some shortness of breath. Has history of asthma. Albuterol and Atrovent treatments will be given. The patient is otherwise asymptomatic. OBJECTIVE: VITAL SIGNS: Temperature is 98.4, pulse of 65, respirations of 18, blood pressure is 134/63, pulse oximetry of 99%. HEENT: Normocephalic and atraumatic. Pupils are reactive to light and accommodation. CVS: S1 and S2 normal. Regular rate and rhythm. ABDOMEN: Slightly tender in the left lower quadrant. EXTREMITIES: No clubbing, no cyanosis, no edema. MEDICATIONS: The patient is on vancomycin, metoprolol, clonidine, famotidine, losartan, pantoprazole, hydromorphone, and nisoldipine (Sular). LABORATORY DATA: Chemistries are pending. Potassium is 4.2. On 05/03, hematology, hemoglobin is 9.6, hematocrit of 29.2, dropped about 2 points. Again, serology is positive for C diff. ASSESSMENT: 1. Clostridium difficile colitis. 2. Hypokalemia. 3. History of coronary artery disease. 4. Hypertension. 5. Hyperlipidemia. PLAN: Continue on vancomycin. We will advance her diet. Further recommendations per clinical course. Also, we will also keep her regular medicines ongoing and also keep checking her lytes. MD CORIE Sheriff/RACHEAL /[id number]
[2019-05-05 11:16] VITALS: BP 169/70
[2019-05-05] MEDS: BALSAM PERU/CASTOR OIL 60 GM OINT...G. TP SCH ×2 (11:19→20:41)
--- NOTE | 2019-05-05 12:25 | NUR ---
Per Dr. Moreno, patient has clearance for discharge. Notified Dr. Donaldson, waiting on answer.
[2019-05-05 15:28] VITALS: BP 140/63
--- NOTE | 2019-05-05 18:53 | NUR ---
BEDSIDE SHIFT REPORT GIVEN TO ONCOMING NURSE. PATIENT IS IN STABLE CONDITION. DENIES PAIN OR DISCOMFORT AT THIS TIME. CALL LIGHT WITHIN REACH. BED IN THE LOWEST POSITION.
[2019-05-05 20:00] VITALS: BP 120/57
[2019-05-05] MEDS: NISOLDIPINE 8.5 MG PO SCH (20:11)
[2019-05-05] MEDS: SIMVASTATIN 40 MG TAB PO SCH (20:12)
[2019-05-05 20:19] VITALS: BP 120/57
[2019-05-05] MEDS ORDERED: PROMETHAZINE 12.5MG/ NACL 0.9% 50 ML IV PRN (20:45)
[2019-05-06] VITALS: BP 155/65
[2019-05-06 04:00] VITALS: BP 143/63
[2019-05-06] MEDS: VANCOMYCIN 250MG/5ML ORAL SOLN PO SCH (05:51)
[2019-05-06] MEDS: ALBUTEROL SULF 0.083% NEB SOLN 3 ML NEB NEB PRN (07:29)
[2019-05-06 08:27] VITALS: BP 169/74
[2019-05-06] MEDS: FAMOTIDINE 20 MG TAB PO SCH (08:34)
[2019-05-06] MEDS: CLONIDINE HCL 0.1 MG TAB PO SCH (08:35)
[2019-05-06] MEDS: LOSARTAN POTASSIUM 100 MG TAB PO SCH (08:35)
[2019-05-06] MEDS: METOPROLOL TARTRATE 50 MG TAB PO SCH (08:36)
[2019-05-06] MEDS: PANTOPRAZOLE SOD 40 MG TABEC PO SCH (08:36)
[2019-05-06 08:50] VITALS: BP 125/71
--- NOTE | 2019-05-06 09:25 | NUR ---
PT DISCHARGED HOME ,IV DCD WITHOUT REDNESS OR SWELLLING,INSTRUCTIONS GIVEN COPY ON CHART.TRANSPORTED TO [facility] W/C
--- NOTE | 2019-05-06 10:25 | Progress Note ---
DATE: 05/06/2019 SUBJECTIVE: 83-year-old female patient comes in with Clostridium difficile colitis, currently feeling better. No diarrheal movement. Had some asthma attacks yesterday. Albuterol and Atrovent treatments were given. The patient is currently on vancomycin 125 mg q. 6 hours. The patient will be discharged today, stable condition. OBJECTIVE: VITAL SIGNS: Temperature is 96.6, pulse of 75, respirations of 20, blood pressure is 143/63, pulse oximetry of 97% on room air. HEENT: Normocephalic and atraumatic. Pupils reactive to light and accommodation. CVS: S1 and S2 normal. Regular rate and rhythm. ABDOMEN: No tenderness. Nondistended. Soft. EXTREMITIES: No clubbing, no cyanosis, no edema. The patient is wheelchair bound. LABORATORY VALUES: The patient's chemistry showed hypokalemia yesterday, which was replaced today. White count has been normalized. ASSESSMENT: 1. Clostridium difficile colitis. Plan discharge on vancomycin 125 q. 6 hours. 2. Hypokalemia, replaced. 3. History of coronary artery disease, hypertension, and hyperlipidemia. Continue home medications. The patient will be followed up in about a week's time. Further recommendation per clinical course. We will continue to monitor the patient. MD CORIE Sheriff/MODL /[id number]
--- NOTE | 2019-05-29 11:36 | Discharge Summary ---
HOSPITAL COURSE: The patient came in with worsening of diarrhea, history of C difficile colitis and also worsening of her asthma. The patient is getting albuterol, Atrovent treatment. The patient was also treated for hypokalemia. Hypertension medicines were continued. Leukocytosis got better with medication. Her C difficile came back positive and once the C difficile was positive, vancomycin was started p.o. and once the diarrhea stopped, the patient had been discharged home in a stable condition. FINAL DIAGNOSES: 1. Clostridium difficile colitis. 2. Acute exacerbation of asthma. 3. Hypokalemia. 4. Hypertension. 5. Coronary artery disease. For further information, look in the chart. The patient was discharged on 05/06/2019. MD TINY SheriffJ/MODL /[id number]
== END 2019-05-06 09:25 | disposition home or self-care (01) | DRG 372 ==
LOC: ER 13:49 → ERHOLD 15:14 → MED/SURG3 15:51 → ERHOLD 16:07 → IMCU 23:46 → MED/SURG3 05-04 20:40
PROVIDERS: ADMIT Family Medicine; ATTEND Family Medicine
DX: A04.71 Enterocolitis due to Clostridium difficile, recurrent (principal); J45.41 Moderate persistent asthma with (acute) exacerbation; E87.6 Hypokalemia; I10 Essential (primary) hypertension; D72.829 Elevated white blood cell count, unspecified; E78.5 Hyperlipidemia, unspecified; J45.909 Unspecified asthma, uncomplicated; Z88.5 Allergy status to narcotic agent; Z88.8 Allergy status to other drugs, medicaments and biological substances; Z83.3 Family history of diabetes mellitus; Z82.49 Family history of ischemic heart disease and other diseases of the circulatory system; I25.10 Atherosclerotic heart disease of native coronary artery without angina pectoris; Z99.3 Dependence on wheelchair
CPT/HCPCS: 36415; 71045; 74177; 80048; 80053; 81001; 82550; 82553; 83690; 83735; 83880; 84100; 84132; 84443; 84484; 85025; 85610; 85730; 87040; 87045; 87086; 87493; 93005; 94640; 99284; J1170; J2405; J2550; J3010; J3480; J7030; Q9967